=== PATIENT | female | born 1960 | race Caucasian/White ===

== ENCOUNTER 2017-09-20 04:40 | Inpatient (IN) | payer BC ==
[2017-09-20 05:32] LABS: Absolute Lymphocytes (CBC) 0.4 K/uL (0.7-4.9); Absolute Monocytes 0.2 K/uL (0.1-1.3); Absolute Neutrophil 12.2 K/uL (1.8-8.0); Basophils % 0.2 % (0-1.3); Eosinophils % 0.2 % (0-4.4); Hematocrit 38.9 % (36.0-45.0); MCH 30.4 pg (27.0-35.0); MCV 91.7 fL (80-100); MPV 9.2 fL (7.6-11.3); Monocytes % 1.7 % (3.3-12.3); RBC Red Blood Cell Count 4.24 M/uL (3.86-4.86)
[2017-09-20] MEDS ORDERED: NA CHLORIDE 0.9% 1,000 ML ONE (05:43)
[2017-09-20 06:27] LABS: Blood Morphology Comment NOTED (NOT SEEN); Platelet Estimate ADEQ; Teardrop Cell FEW
[2017-09-20 06:32] LABS: Thyroid Stimulating Hormone 1.42 uIU/mL (0.34-5.60)
--- NOTE | 2017-09-20 06:34 | EKG ---
Test Date: 2017-09-20 Test Time: 05:21:31 Chucking Machine Set Up Operator: KIT MEASUREMENT RESULTS: Intervals: Rate: 111 MI: 130 QRSD: 86 QT: 336 QTc: 456 Champion: P: 50 MI: 130 QRS: 31 T: 40 INTERPRETIVE STATEMENTS: Sinus tachycardia Possible Left atrial enlargement Borderline ECG No previous ECG available for comparison Electronically Signed On 09-20-17 06:33:44 CDT by Misha Peralta
--- NOTE | 2017-09-20 06:41 | ER ---
Nurse's Notes [facility] Name: Charleen Bourne Age: 57 yrs Sex: Female : 1960 Arrival Date: 09/20/2017 Time: 04:43 Bed 4 Private MD: Diagnosis: Lobar pneumonia, unspecified organism Presentation: 09/20 04:51 Presenting complaint: Patient states: seen and treated by PCP Dr. Aguirre for sinus ak1 infection. pt c/o increased cough, congestion and back pain with cough. Transition of care: patient was not received from another setting of care. Onset of symptoms is unknown. Care prior to arrival: None. 04:51 Method Of Arrival: Ambulatory ak1 04:51 Acuity: HARSH 4 ak1 Triage Assessment: 04:53 General: Appears in no apparent distress. Behavior is calm, cooperative. 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 - Social history:: Smoking status: Patient/guardian denies using tobacco. Screenin:18 Abuse screen: Denies threats or abuse. Denies injuries from another. Nutritional bp screening: No deficits noted. Tuberculosis screening: No symptoms or risk factors identified. Fall Risk None identified. Assessment: 05:00 General: Appears in no apparent distress. comfortable, obese, Behavior is calm, bp cooperative, appropriate for age. Pain: Complains of pain in back. Neuro: Level of Consciousness is awake, alert, obeys commands, Oriented to person, place, time, situation, Appropriate for age. Cardiovascular: Capillary refill < 3 seconds in bilateral fingers Rhythm is sinus tachycardia. Respiratory: Airway is patent Respiratory effort is even, unlabored, Respiratory pattern is regular, symmetrical, Breath sounds are clear. GI: No signs and/or symptoms were reported involving the gastrointestinal system. : No signs and/or symptoms were reported regarding the genitourinary system. EENT: Reports nasal congestion. Derm: No deficits noted. Musculoskeletal: Circulation, motion, and sensation intact. Range of motion: intact in all extremities. 06:02 Reassessment: PT TO CT WITH PRIVATE HOUSEHOLD WORKER. bp 06:53 Reassessment: PT SEEN BY HOSPITALIST, PT DISPO PENDING DECISION OF PNEUMONIA VS bp MALIGNANCY. 07:17 General: Appears in no apparent distress. comfortable, Behavior is calm, cooperative, sv appropriate for age. Pain: Denies pain. Neuro: Level of Consciousness is awake, alert, obeys commands, Oriented to person, place, time, situation. Respiratory: Respiratory effort is even, unlabored, Respiratory pattern is regular, symmetrical. Derm: Skin is pink, warm \T\ dry. 07:42 Reassessment: Pt given lemon glycerine swabs. sv 08:30 Reassessment: Patient appears in no apparent distress at this time. Patient and/or sv family updated on plan of care and expected duration. Pain level reassessed. Patient is alert, oriented x 3, equal unlabored respirations, skin warm/dry/pink. Pt ambulatory to the bathroom. 08:53 Reassessment: Nurse to call back for report. sv Vital Signs: 04:50 BP 124 / 90; Pulse 115; Resp 18; Temp 98.2(O); Pulse Ox 96% on R/A; Weight 73.94 kg ak1 (R); Height 5 ft. 0 in. (152.40 cm) (R); Pain 6/10; 05:58 BP 115 / 62; Pulse 102; Resp 18; Pulse Ox 100% ; bp 07:17 BP 123 / 69; Pulse 110; Resp 18; Temp 98.5(O); Pulse Ox 97% on R/A; sv 08:23 BP 137 / 61; Pulse 114; Resp 18; Pulse Ox 96% ; sv 09:25 BP 154 / 72; Pulse 115; Resp 18; Pulse Ox 97% ; sv 04:50 Body Mass Index 31.83 (73.94 kg, 152.40 cm) ak1 ED Course: 04:43 Patient arrived in ED. al2 04:50 Homer Jessica MD is Attending Physician. gs 04:51 Sean Hooks, WILLIAM is Primary Nurse. bp 04:52 Triage completed. ak1 04:53 Arm band placed on Patient placed in an exam room, on a stretcher, on pulse oximetry, ak1 Patient notified of wait time. 04:54 Patient has correct armband on for positive identification. Bed in low position. Call ak1 light in reach. Side rails up X 1. Adult w/ patient. Pulse ox on. NIBP on. 05:02 Radiology exam delayed due to lab results not completed at this time. (BUN/Creatinine). nb1 05:10 Inserted saline lock: 20 gauge in left antecubital area, using aseptic technique. Blood bp collected. 05:27 Basic Metabolic Panel Sent. bp 05:27 CBC with Diff Sent. bp 05:27 Troponin (emerg Dept Use Only) Sent. bp 06:40 Alessandro Jackson DO is Hospitalizing Provider. gs 07:07 TSH Sent. sv 07:08 Blood Culture* Sent. sv 07:08 Urine Dipstick--Ancillary (enter results) Sent. sv 07:09 Primary Nurse role handed off by Sean Hooks, WILLIAM sv 07:09 Trista Diaz, WILLIAM is Primary Nurse. sv 07:43 Awaiting bed assignment. sv 08:24 Awaiting bed assignment. sv 08:54 No provider procedures requiring assistance completed. Patient admitted, IV remains in sv place. intact. Administered Medications: 05:27 Drug: NS 0.9% 1000 ml Route: IV; Rate: 1 bolus; Site: left antecubital; bp 07:17 Drug: LevaQUIN 750 mg Volume: 150 ml; Route: IVPB; Infused Over: 90 mins; Site: left sv antecubital; 08:55 Follow up: Response: No adverse reaction; IV Status: Completed infusion; IV Intake: sv 150ml 07:42 Drug: Zofran 4 mg {Note: Levaquin paused and flushed before and after the Zofran sv given..} Route: IVP; Site: left antecubital; 08:00 Follow up: Response: No adverse reaction sv Intake: 08:55 IV: 150ml; Total: 150ml. sv Outcome: 06:40 Decision to Hospitalize by Provider. gs 09:22 Admitted to Med/surg accompanied by tech, via wheelchair, room 411, with chart, Report sv called to Kristi THOMAS 09:22 Condition: stable 09:22 Instructed on the need for admit. 09:43 Patient left the ED. sv Signatures: Trista Diaz, RN RN sv Aretha Perez, RN RN ak1 Homer Jessica MD MD gs Boothe, Nicole nb1 Sean Hooks RN RN bp Juarez, Devika low2
--- NOTE | 2017-09-20 06:41 | EDPHYS ---
Physician Documentation [facility] Name: Charleen Bourne Age: 57 yrs Sex: Female : 1960 Arrival Date: 09/20/2017 Time: 04:43 Bed 4 Private MD: ED Physician Homer Jessica HPI: 09/20 06:16 This 57 yrs old Female presents to ER via Ambulatory with complaints of gs Cough, Fever, Congestion, Back Pain. 06:16 The patient or guardian reports chest pain that is located primarily in the anterior gs chest wall. Onset: 1 week(s) ago. Associated signs and symptoms: Pertinent positives: cough, shortness of breath. The chest pain is described as sharp. 06:16 Duration: The patient or guardian reports multiple episodes, that are intermittent. gs Modifying factors: The symptoms are alleviated by nothing. the symptoms are aggravated by deep breath. Severity of pain: At its worst the pain was moderate in the emergency department the pain is unchanged. 06:16 The patient has been recently seen by a physician: with similar presenting complaints. 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 - Social history:: Smoking status: Patient/guardian denies using tobacco. ROS: 06:16 All other systems are negative. gs Exam: 06:16 Head/Face: Normocephalic, atraumatic. Eyes: Pupils equal round and reactive to light, gs extra-ocular motions intact. Lids and lashes normal. Conjunctiva and sclera are non-icteric and not injected. Cornea within normal limits. Periorbital areas with no swelling, redness, or edema. ENT: Nares patent. No nasal discharge, no septal abnormalities noted. Tympanic membranes are normal and external auditory canals are clear. Oropharynx with no redness, swelling, or masses, exudates, or evidence of obstruction, uvula midline. Mucous membranes moist. Neck: Trachea midline, no thyromegaly or masses palpated, and no cervical lymphadenopathy. Supple, full range of motion without nuchal rigidity, or vertebral point tenderness. No Meningismus. Chest/axilla: Normal chest wall appearance and motion. Nontender with no deformity. No lesions are appreciated. Abdomen/GI: Soft, non-tender, with normal bowel sounds. No distension or tympany. No guarding or rebound. No evidence of tenderness throughout. Back: No spinal tenderness. No costovertebral tenderness. Full range of motion. Skin: Warm, dry with normal turgor. Normal color with no rashes, no lesions, and no evidence of cellulitis. MS/ Extremity: Pulses equal, no cyanosis. Neurovascular intact. Full, normal range of motion. Neuro: Awake and alert, GCS 15, oriented to person, place, time, and situation. Cranial nerves II-XII grossly intact. Motor strength 5/5 in all extremities. Sensory grossly intact. Cerebellar exam normal. Normal gait. 06:16 Constitutional: The patient appears alert, awake. 06:16 Cardiovascular: Rate: tachycardic, Rhythm: regular, Pulses: no pulse deficits are appreciated, Heart sounds: normal. 06:16 ECG was reviewed by the Attending Physician. 06:16 Respiratory: the patient does not display signs of respiratory distress, Respirations: intercostal retractions, are absent, tachypnea, that is mild, Breath sounds: are clear throughout. Vital Signs: 04:50 BP 124 / 90; Pulse 115; Resp 18; Temp 98.2(O); Pulse Ox 96% on R/A; Weight 73.94 kg ak1 (R); Height 5 ft. 0 in. (152.40 cm) (R); Pain 6/10; 05:58 BP 115 / 62; Pulse 102; Resp 18; Pulse Ox 100% ; bp 07:17 BP 123 / 69; Pulse 110; Resp 18; Temp 98.5(O); Pulse Ox 97% on R/A; sv 08:23 BP 137 / 61; Pulse 114; Resp 18; Pulse Ox 96% ; sv 09:25 BP 154 / 72; Pulse 115; Resp 18; Pulse Ox 97% ; sv 04:50 Body Mass Index 31.83 (73.94 kg, 152.40 cm) [facility] MDM: 04:57 Patient medically screened. 06:16 Differential diagnosis: abnormal EKG, acute myocardial infarction, chest wall pain, gs pleurisy, pulmonary embolus. Data reviewed: vital signs, nurses notes. 09/20 04:59 Order name: Basic Metabolic Panel 09/20 04:59 Order name: CBC with Diff 09/20 04:59 Order name: Troponin (emerg Dept Use Only) 09/20 05:24 Order name: TSH 09/20 05:34 Order name: CBC with Automated Diff; Complete Time: 06:28 EDMS 09/20 05:53 Order name: Basic Metabolic Panel; Complete Time: 06:33 EDMS 09/20 04:59 Order name: CT Chest For PE Angio 09/20 05:54 Order name: Troponin (Emerg Dept Use Only); Complete Time: 06:28 EDMS 09/20 06:27 Order name: Manual Differential; Complete Time: 06:28 EDNE 09/20 06:32 Order name: Thyroid Stimulating Hormone; Complete Time: 06:33 EDNE 09/20 06:39 Order name: Blood Culture* 09/20 06:42 Order name: Urine Dipstick--Ancillary (enter results) [facility] 09/20 06:59 Order name: Urine Dipstick-Ancillary [facility] 09/20 04:59 Order name: EKG; Complete Time: 05:00 09/20 04:59 Order name: Cardiac monitoring; Complete Time: 05:16 09/20 04:59 Order name: EKG - Nurse/Tech; Complete Time: 05:27 09/20 04:59 Order name: IV Saline Lock; Complete Time: 05:16 09/20 04:59 Order name: Labs collected and sent; Complete Time: 05:16 09/20 04:59 Order name: O2 Per Protocol; Complete Time: 05:16 09/20 04:59 Order name: O2 Sat Monitoring; Complete Time: 05:16 09/20 04:59 Order name: Urine Dipstick-Ancillary (obtain specimen); Complete Time: 06:44 gs EC:16 Rate is 111 beats/min. Rhythm is regular. NM interval is normal. QRS interval is gs normal. QT interval is normal. T waves are Normal. No ST changes noted. Clinical impression: Sinus tachycardia. Interpreted by me. Administered Medications: 05:27 Drug: NS 0.9% 1000 ml Route: IV; Rate: 1 bolus; Site: left antecubital; bp 07:17 Drug: LevaQUIN 750 mg Volume: 150 ml; Route: IVPB; Infused Over: 90 mins; Site: left sv antecubital; 08:55 Follow up: Response: No adverse reaction; IV Status: Completed infusion; IV Intake: sv 150ml 07:42 Drug: Zofran 4 mg {Note: Levaquin paused and flushed before and after the Zofran sv given..} Route: IVP; Site: left antecubital; 08:00 Follow up: Response: No adverse reaction sv Disposition: 09/20/17 06:40 Hospitalization ordered by Alessandro Jackson for Inpatient Admission. Preliminary diagnosis is Lobar pneumonia, unspecified organism. - Bed requested for Telemetry/MedSurg (Inpatient). - Status is Inpatient Admission. sv - Condition is Stable. - Problem is new. - Symptoms have improved. UTI on Admission? No Signatures: Dispatcher [employer] Trista Cage, RN RN Jazzmine Sutherland RN RN Aretha Read RN RN ak1 Homer Jessica MD MD gs Peltier, Brian, RN RN bp
[2017-09-20 06:59] LABS: Urine Blood TRACE (NEG); Urine Glucose NEGATIVE (NEG); Urine Protein NEGATIVE (NEG); Urine Specific Gravity <1.005 (1.005-1.030)
[2017-09-20] MEDS ORDERED: ACETAMINOPHEN 500 MG TAB PO PRN (07:22)
[2017-09-20] MEDS ORDERED: ONDANSETRON 4 MG/2 ML VIAL IV PRN (07:22)
[2017-09-20] MEDS ORDERED: Levofloxacin 750mg IV 750 MG/150 ML BAG IV ONE (07:30)
[2017-09-20] MEDS ORDERED: ONDANSETRON 4 MG/2 ML VIAL ONE (07:56)
[2017-09-20] MEDS: IPRATROPIUM BROM 0.5MG/2.5ML NEB SCH ×3 (08:00→19:39)
[2017-09-20] MEDS: ALBUTEROL 2.5 MG/3 ML NEB SOL NEB SCH ×3 (08:00→19:39)
[2017-09-20] MEDS ORDERED: NA CHLORIDE 0.9% 1,000 ML IV SCH (08:00)
[2017-09-20] MEDS ORDERED: CEFEPIME 2 GM VIAL IV SCH (09:00)
[2017-09-20] MEDS ORDERED: VANCOMYCIN 1.5 GM in NA CHLORIDE 0.9% 500 ML IV SCH ×2 (09:00→12:00)
--- NOTE | 2017-09-20 09:16 | P.HP ---
Certification for Inpatient Patient admitted to: Inpatient With expected LOS: >2 Midnights Patient will require the following post-hospital care: None Practitioner: I am a practitioner with admitting privileges, knowledge of patient current condition, hospital course, and medical plan of care. Services: Services provided to patient in accordance with Admission requirements found in Title 42 Section 412.3 of the Code of Federal Regulations Patient History Date of Service: 09/20/17 Reason for admission: Multifocal pneumonia History of Present Illness: Patient is a 57-year-old female who was admitted to the hospital with a pneumonia. She has been treated as an outpatient for the last week and a half. She saw her primary care provider who started her on Augmentin. She did feel better for a few days but over the last 4-5 days she has started becoming worse. She went back in to see her primary care provider who started her on Zithromax. However, this did not work either. She continued to get worse having fevers, shakes, and chills along with a persistent cough. This was a dry cough that she was not able to get any mucus up. She was feeling worse over had her come to the hospital. In the emergency room a CT scan of the chest revealed a large left-sided consolidated pneumonia as well as a right lower lobe pneumonia. She will be admitted to the hospital for IV antibiotic therapy as well. Patient did smoke for about 9 months in her 40s. Other than that she has no exposure to smoking. She denies any significant weight loss. She denies hemoptysis. She denies night sweats. She will be admitted to the hospital for further evaluation. Allergies cephalexin [From Keflex] Allergy (Verified 09/20/17 07:10) Itching/Hives/Rash - Past Medical/Surgical History -: Hypertension Past Surgical History: Patient denies surgical history - Family History Father Family History: Reviewed- Non-Contributory - Social History Smoking Status: Former smoker Alcohol use: No CD- Drugs: No Review of Systems 10-point ROS is otherwise unremarkable Physical Examination - Vital Signs Temperature: 99 F Blood Pressure: 120/70 Pulse: 89 Respirations: 18 Pulse Ox (%): 96 - Physical Exam General: Alert, In no apparent distress, Oriented x3 HEENT: Atraumatic, PERRLA, Mucous membr. moist/pink, EOMI, Sclerae nonicteric Neck: Supple, 2+ carotid pulse no bruit, No LAD, Without JVD or thyroid abnormality Respiratory: Diminished, Rhonchi/gurgles Cardiovascular: Regular rate/rhythm, Normal S1 S2, No murmurs Gastrointestinal: Normal bowel sounds, Soft and benign, Non-distended, No tenderness Musculoskeletal: No clubbing, No swelling, No tenderness Integumentary: No rashes Neurological: Normal gait, Normal speech, Normal strength at 5/5 x4 extr, Normal tone, Sensation intact, Cranial nerves 3-12 intact, Normal affect Lymphatics: No axilla or inguinal lymphadenopathy - Studies Laboratory Data (last 24 hrs) 09/20/17 05:10: WBC 12.8 H, Hgb 12.9, Hct 38.9, Plt Count 192 09/20/17 05:10: Sodium 137, Potassium 4.0, BUN 13, Creatinine 0.94, Glucose 138 H Assessment & Plan - Problems (Diagnosis) (1) Multifocal pneumonia Current Visit: Yes Status: Acute (2) Therapy failure due to antibiotic resistance Current Visit: Yes Status: Acute - Plan Plan: 1. Continue with IV antibiotics 2. Awaiting sputum and blood culture; procalcitonin level 3. Repeat chest x-ray in AM 4. CT scan revealed a persistent multifocal pneumonia with a consolidated left lower lobe pneumonia 5. Monitor hemodynamics closely 6. Continue with nebs as needed 7. O2 per protocol 8. Continue with gentle hydration 9. Repeat labs including CBC and renal function in a.m. 10. Outpt follow-up with Pulmonary 11. GI and DVT prophylaxis Discharge Plan: Home Plan to discharge in: Greater than 2 days - Advance Directives Does patient have a Living Will: No Does patient have a Durable POA for Healthcare: No - Code Status/Comfort Care Code Status Assessed: Yes Code Status: Full Code Critical Care: No Time Spent Managing PTS Care (In Minutes): 50
[2017-09-20 09:47] VITALS: BMI 31.8
[2017-09-20] MEDS ORDERED: NAPROXEN 250 MG TAB PO PRN (10:48)
--- NOTE | 2017-09-20 10:53 | P.CNS ---
Date of Consult: 09/20/17 Reason for Consult: Pneumonia Chief Complaint: Multifocal pneumonia History of Present Illness: Patient is 57 years of age she became sick about 2 weeks ago was treated with a sinus infection with amoxicillin by a primary care doctor patient did recover and then started having problems the gain for the past 4-5 days started complaining of shortness of breath productive cough chest pain worse on the left side and was admitted with from the emergency room with a diagnosis of left lower lobe pneumonia she currently complains of discomfort on the left side and was unable to sleep apart from history of asthma no other significant medical problems Allergies cephalexin [From Keflex] Allergy (Verified 09/20/17 07:10) Itching/Hives/Rash - Past Medical/Surgical History -: Hypertension -: Asthma - Family History Father Family History: Reviewed- Non-Contributory - Social History Alcohol use: No CD- Drugs: No Review of Systems 10-point ROS is otherwise unremarkable Physical Examination Temp Pulse Resp BP Pulse Ox 100.1 F 126 H 24 H 138/63 94 09/20/17 09:47 09/20/17 09:47 09/20/17 09:47 09/20/17 09:47 09/20/17 09:47 General: Alert, Oriented x3 HEENT: Atraumatic Neck: Supple Respiratory: Crackles/rales (Crackles on the left side) Cardiovascular: No edema, Regular rate/rhythm, Normal S1 S2 Gastrointestinal: Normal bowel sounds, Soft and benign Laboratory Data (last 24 hrs) 09/20/17 05:10: WBC 12.8 H, Hgb 12.9, Hct 38.9, Plt Count 192 09/20/17 05:10: Sodium 137, Potassium 4.0, BUN 13, Creatinine 0.94, Glucose 138 H - Problems (1) Left lower lobe pneumonia Current Visit: Yes Status: Acute Plan: Patient is 57 years of age admitted with a left lower lobe pneumonia change to p.o. levofloxacin patient is hemodynamically stable complaining of chest pain I have added some Vicodin and Naprosyn labs reviews chemistry unremarkable patient. Will be discharged home tomorrow on levofloxacin for 7 days blood cultures pending
--- NOTE | 2017-09-20 11:56 | RAD REPORT ---
EXAM DESCRIPTION: CT - Chest For Pe Angio - 09/20/2017 6:23 am CLINICAL HISTORY: Chest pain. COMPARISON: None. TECHNIQUE: CT angiogram of the pulmonary arteries was performed with MIP. All CT scans are performed using dose optimization technique as appropriate and may include automated exposure control or mA/KV adjustment according to patient size. FINDINGS: No evidence of pulmonary thromboembolism. No acute aortic finding demonstrated. A large area of airspace consolidation is seen in the left lower lobe, most likely representing bronc hopneumonia. Mild linear and nodular opacities as present right lower lobe posteriorly. A small left pleural effusion is seen. Mildly prominent mediastinal and left hilar lymph nodes are pr esent, likely reactive. Fatty liver is seen. IMPRESSION: No evidence of pulmonary thromboembolism. Large area of consolidation in the left lower lobe likely represents bronchopneumonia.
[2017-09-20] MEDS ORDERED: NA CHLORIDE 0.9% 1,000 ML IV ONE (12:10)
[2017-09-20] MEDS: ENOXAPARIN 40 MG/0.4 ML SQ SCH (12:30)
[2017-09-20] MEDS: HYDROCODONE/APAP 5/325 MG TAB PO PRN ×2 (12:33→20:28)
[2017-09-20 12:47] LABS: Absolute Lymphocytes (CBC) 0.4 K/uL (0.7-4.9); Absolute Monocytes 0.4 K/uL (0.1-1.3); Absolute Neutrophil 11.7 K/uL (1.8-8.0); Basophils % 0.1 % (0-1.3); Hematocrit 40.7 % (36.0-45.0); Lymphocytes % 3.1 % (15.3-44.8); MCH 30.2 pg (27.0-35.0); MCV 91.7 fL (80-100); MPV 9.2 fL (7.6-11.3); RBC Red Blood Cell Count 4.44 M/uL (3.86-4.86)
[2017-09-20 13:01] LABS: Potassium 3.8 mEq/L (3.6-5.0)
[2017-09-20 13:05] LABS: Albumin 3.4 g/dL (3.2-5.5); Protein, Total 7.3 g/dL (6.0-8.3)
[2017-09-20 13:07] LABS: Bilirubin Total 1.1 mg/dL (0.3-1.2)
[2017-09-20] MEDS: chlordiazePOXIDE HCl 25 MG CAP PO PRN (14:13)
[2017-09-21] MEDS: chlordiazePOXIDE HCl 25 MG CAP PO PRN (00:03)
[2017-09-21] MEDS: HYDROCODONE/APAP 5/325 MG TAB PO PRN (00:03)
[2017-09-21] MEDS: ALBUTEROL 2.5 MG/3 ML NEB SOL NEB SCH ×2 (01:16→07:44)
[2017-09-21] MEDS: IPRATROPIUM BROM 0.5MG/2.5ML NEB SCH ×2 (01:16→07:44)
[2017-09-21 04:20] LABS: Absolute Lymphocytes (CBC) 0.5 K/uL (0.7-4.9); Absolute Monocytes 0.5 K/uL (0.1-1.3); Absolute Neutrophil 7.3 K/uL (1.8-8.0); Basophils % 0.2 % (0-1.3); Eosinophils % 1.6 % (0-4.4); Hematocrit 31.7 % (36.0-45.0); Lymphocytes % 5.4 % (15.3-44.8); MCH 30.7 pg (27.0-35.0); MPV 9.1 fL (7.6-11.3); Monocytes % 5.4 % (3.3-12.3); RBC Red Blood Cell Count 3.45 M/uL (3.86-4.86)
[2017-09-21 04:40] LABS: Albumin 2.5 g/dL (3.2-5.5); Bilirubin Total 0.7 mg/dL (0.3-1.2); Magnesium 1.5 mg/dL (1.8-2.5); Phosphorus 2.3 mg/dL (2.5-4.3); Potassium 3.3 mEq/L (3.6-5.0); Protein, Total 5.5 g/dL (6.0-8.3)
[2017-09-21] MEDS ORDERED: Magnesium Sulfate 2gm IVPB 2 G/50 ML BAG IV ONE (07:17)
[2017-09-21] MEDS ORDERED: POTASSIUM CL SA 10 MEQ TAB PO ONE (07:18)
--- NOTE | 2017-09-21 08:23 | P.PN ---
Subjective Date of Service: 09/21/17 Chief Complaint: Multifocal pneumonia Subjective: Improving (Patient is doing better pain has improved normal fever complaining of chest congestion) Review of Systems Respiratory: Cough, Shortness of Breath Physical Examination - Vital Signs Temperature: 98.0 F Blood Pressure: 97/57 Pulse: 92 Respirations: 15 Pulse Ox (%): 97 - Physical Exam General: Alert, Oriented x3 Respiratory: Crackles/rales (Crackles on the left side) Cardiovascular: No edema Gastrointestinal: Normal bowel sounds, Soft and benign Assessment & Plan - Problems (Diagnosis) (1) Left lower lobe pneumonia Current Visit: Yes Status: Acute Plan: Patient is 57 years of age admitted with left lower lobe pneumonia cultures are so far negative clinically improving patient can be discharged home on levofloxacin for another 7 days Qualifiers: Aspiration pneumonia type: unspecified
[2017-09-21] MEDS: ENOXAPARIN 40 MG/0.4 ML SQ SCH (08:39)
[2017-09-21] MEDS ORDERED: Levofloxacin 750mg IV 750 MG/150 ML BAG IV SCH ×2 (09:00)
[2017-09-21] MEDS ORDERED: levoFLOXacin 500 MG TAB PO SCH ×2 (09:00)
[2017-09-21] MEDS ORDERED: NA CHLORIDE 0.9% 500 ML IV ONE (09:52)
[2017-09-21 12:10] VITALS: O2SAT 100
[2017-09-21 15:28] VITALS: BP 114/60; TEMP 98.4
--- NOTE | 2017-09-21 17:26 | P.SSS ---
Patient History Date of Service: 09/21/17 Reason for admission: Multifocal pneumonia History of Present Illness: Patient is a 57-year-old female who was admitted to the hospital with a pneumonia. She has been treated as an outpatient for the last week and a half. She saw her primary care provider who started her on Augmentin. She did feel better for a few days but over the last 4-5 days she has started becoming worse. She went back in to see her primary care provider who started her on Zithromax. However, this did not work either. She continued to get worse having fevers, shakes, and chills along with a persistent cough. This was a dry cough that she was not able to get any mucus up. She was feeling worse over had her come to the hospital. In the emergency room a CT scan of the chest revealed a large left-sided consolidated pneumonia as well as a right lower lobe pneumonia. She will be admitted to the hospital for IV antibiotic therapy as well. Patient did smoke for about 9 months in her 40s. Other than that she has no exposure to smoking. She denies any significant weight loss. She denies hemoptysis. She denies night sweats. She will be admitted to the hospital for further evaluation. Allergies cephalexin [From Keflex] Allergy (Verified 09/20/17 07:10) Itching/Hives/Rash Home Medications: Budesonide/Formoterol Fumarate [Symbicort 160-4.5 Mcg Inhaler] 2 puff IH BID Ipratropium/Albuterol Sulfate [Combivent Respimat Inhal [place]] 2 puff IH Q4H PRN 09/20/17 Levothyroxine [Synthroid*] 50 mcg PO [id number] 09/20/17 Lisinopril 10 mg PO DAILY 09/20/17 Nebivolol HCl [Bystolic*] 2.5 mg PO DAILY 09/20/17 Simvastatin 1 tab PO DAILY 09/20/17 Benzonatate [Tessalon Perle] 200 mg PO TID PRN #30 cap 09/21/17 Guaifenesin [Mucinex] 600 mg PO BID PRN #30 tab.er.12h 09/21/17 Levofloxacin [Levaquin] 500 mg PO DAILY 7 Days #7 tablet 09/21/17 - Past Medical/Surgical History Has patient received pneumonia vaccine in the past: Yes -: Hypertension -: Asthma -: MRSA in abd wound -: hypo thyroid -: hyperchol - Family History Father -: Cancer Mother History Unknown: Yes -: Heart disease - Social History Smoking Status: Former smoker Alcohol use: Yes CD- Drugs: No Caffeine use: Yes Place of Residence: Home Review of Systems General: As per HPI Physical Examination - Vital Signs Temperature: 98.4 F Blood Pressure: 114/60 Pulse: 98 Respirations: 18 Pulse Ox (%): 95 - Physical Exam General: Alert, In no apparent distress, Oriented x3 HEENT: Atraumatic, PERRLA, Mucous membr. moist/pink, EOMI, Sclerae nonicteric Neck: Supple, 2+ carotid pulse no bruit, No LAD, Without JVD or thyroid abnormality Respiratory: Clear to auscultation bilaterally, Normal air movement Cardiovascular: Regular rate/rhythm, Normal S1 S2 Gastrointestinal: Normal bowel sounds, No tenderness Musculoskeletal: No tenderness Integumentary: No rashes Neurological: Normal gait, Normal speech, Normal strength at 5/5 x4 extr, Normal tone, Normal affect Lymphatics: No axilla or inguinal lymphadenopathy - Diagnosis (Problem(s)) (1) Left lower lobe pneumonia Onset Date: 09/21/17 Status: Acute Plan: Responded well on Empiric Therapy. Discharge on PO therapy. Qualifiers: Aspiration pneumonia type: unspecified (2) Alcohol abuse Status: Acute Plan: Remained stable here in the hospital Treatment Summary: 1. Patient will need a follow up with a PCP in 1 week to follow up this hospitalization. 2. Patient presented with shortness of breath. Patient found to have left lower lobe pneumonia. Patient evaluated by pulmonology. At discharge patient will continue with Levaquin 500 mg 1 pill daily for 7 days. Tessalon Perles 200 mg 1 pill 3 times a day as needed for cough and Mucinex 600 mg 1 pill twice daily as needed for congestion will be provided. Recommendation is for the patient to have a chest x-ray repeated in 2-4 weeks to monitor resolution. Recommendation is for the patient to follow up with pulmonology in 2-4 weeks to monitor progress. 3. Patient with history of COPD. Patient will continue with Symbicort 160 presently and albuterol/Atrovent to be use as needed for shortness 4. Patient has hypertension. She will continue with lisinopril 10 mg 1 pill daily and Bystolic 2.5 mg 1 pill daily. Recommendation is to maintain blood pressures less 150/80. Further adjustment can be done by her PCP. She may need to hold her medication if blood pressures remain below 120 systolic. 5. Patient has hyperlipidemia. She will continue with Zocor 80 mg 1 pill once daily. 6. Patient has hypothyroidism. Patient will continue with Levoxyl 50 mcg 1 pill daily. 7. Patient may return to work next Thursday. - Disposition Disposition: ROUTINE DISCHARGE Patient Discharge Instructions: 1. Patient will need a follow up with a PCP in 1 week to follow up this hospitalization. 2. Patient presented with shortness of breath. Patient found to have left lower lobe pneumonia. Patient evaluated by pulmonology. At discharge patient will continue with Levaquin 500 mg 1 pill daily for 7 days. Tessalon Perles 200 mg 1 pill 3 times a day as needed for cough and Mucinex 600 mg 1 pill twice daily as needed for congestion will be provided. Recommendation is for the patient to have a chest x-ray repeated in 2 -4 weeks to monitor resolution. Recommendation is for the patient to follow up with pulmonology in 2-4 weeks to monitor progress. 3. Patient with history of COPD. Patient will continue with Symbicort 160 presently and albuterol/ Atrovent to be use as needed for shortness. 4. Patient has hypertension. She will continue with lisinopril 10 mg 1 pill daily and Bystolic 2.5 mg 1 pill daily. Recommendation is to maintain blood pressures less 150/80. Further adjustment can be done by her PCP. She may need to hold her medication if blood pressures remain below 120 systolic. 5. Patient has hyperlipidemia. She will continue with Zocor 80 mg 1 pill once daily. 6. Patient has hypothyroidism. Patient will continue with Levoxyl 50 mcg 1 pill daily. 7. Patient may return to work next Thursday. Diet: AHA Activity: Ad melanie
[2017-09-21] MEDS ORDERED: HOME MED 1 EA UNK (Budesonide/Formoterol Fumarate [Symbicort 160-4.5 Mcg Inhaler] 2 PUFF) IH SCH (21:00)
[2017-09-21] MEDS ORDERED: ATORVASTATIN 40 MG TAB PO SCH (21:00)
[2017-09-22] MEDS ORDERED: LEVOTHYROXINE SOD 0.05 MG TABLET PO SCH (06:00)
[2017-09-24 03:49] LABS: HBsAG Nonreactive (Nonreactive); Hepatitis A IgM Antibody Nonreactive
== END 2017-09-21 13:50 | disposition home or self-care (01) | DRG 871 ==
LOC: ER 04:40 → ERHOLD 06:43 → 4TH 09:22
PROVIDERS: ADMIT Family Medicine; ATTEND Hospitalist
DX: A41.9 Sepsis, unspecified organism (principal); J18.9 Pneumonia, unspecified organism; J44.0 Chronic obstructive pulmonary disease with (acute) lower respiratory infection; I10 Essential (primary) hypertension; E03.9 Hypothyroidism, unspecified; Z87.891 Personal history of nicotine dependence; E78.00 Pure hypercholesterolemia, unspecified; F10.10 Alcohol abuse, uncomplicated
CPT/HCPCS: 36415; 71275; 80048; 80053; 80061; 80074; 81003; 83605; 83735; 84100; 84443; 84484; 85025; 87040; 93005; 94640; 96365; 96366; 96375; 99285; J1650; J2405; J3475; J7030; Q9967

== ENCOUNTER 2017-11-03 10:08 | Inpatient (IN) | payer BC ==
[2017-11-03] MEDS ORDERED: IPRATROPIUM BROM 0.5MG/2.5ML ONE (10:27)
[2017-11-03] MEDS ORDERED: LEVALBUTEROL 1.25 MG/3 ML NEB ONE (10:27)
[2017-11-03] MEDS ORDERED: METHYLPREDNISOLONE 125 MG INJ ONE (11:03)
[2017-11-03] MEDS ORDERED: Levofloxacin 750mg IV 750 MG/150 ML BAG IV ONE (11:03)
--- NOTE | 2017-11-03 11:12 | EDPHYS ---
Physician Documentation [facility] Name: Charleen Bourne Age: 57 yrs Sex: Female : 1960 Arrival Date: 11/03/2017 Time: 10:09 Bed 26 Private MD: ED Physician Kalpesh Lane HPI: 11/03 10:42 This 57 yrs old Female presents to ER via Ambulatory with complaints of soledad Cough, Wheezing > 1 Year. 10:42 The patient or guardian reports airway noise, cough, difficulty breathing, flu soledad symptoms. Onset: The symptoms/episode began/occurred 3 day(s) ago. Severity of symptoms: At their worst the symptoms were moderate, in the emergency department the symptoms are unchanged. Modifying factors: The symptoms are alleviated by nothing, the symptoms are aggravated by nothing. The patient has not experienced similar symptoms in the past. 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 - Social history:: Smoking status: Patient/guardian denies using tobacco, Patient uses alcohol, occasionally. Patient/guardian denies using street drugs. - Family history:: not pertinent. ROS: 10:42 Constitutional: Negative for fever, chills, and weight loss, Eyes: Negative for injury, soledad pain, redness, and discharge, ENT: Negative for injury, pain, and discharge, Neck: Negative for injury, pain, and swelling, Cardiovascular: Negative for chest pain, palpitations, and edema, Abdomen/GI: Negative for abdominal pain, nausea, vomiting, diarrhea, and constipation, Back: Negative for injury and pain, : Negative for injury, bleeding, discharge, and swelling, MS/Extremity: Negative for injury and deformity, Skin: Negative for injury, rash, and discoloration, Neuro: Negative for headache, weakness, numbness, tingling, and seizure, Psych: Negative for depression, anxiety, suicide ideation, homicidal ideation, and hallucinations, Allergy/Immunology: Negative for hives, rash, and allergies, Endocrine: Negative for neck swelling, polydipsia, polyuria, polyphagia, and marked weight changes, Hematologic/Lymphatic: Negative for swollen nodes, abnormal bleeding, and unusual bruising. 10:42 Respiratory: Positive for cough, dyspnea on exertion, shortness of breath, wheezing, inspiratory, expiratory. Exam: 10:42 Constitutional: This is a well developed, well nourished patient who is awake, alert, soledad and in no acute distress. Head/Face: Normocephalic, atraumatic. Eyes: Pupils equal round and reactive to light, extra-ocular motions intact. Lids and lashes normal. Conjunctiva and sclera are non-icteric and not injected. Cornea within normal limits. Periorbital areas with no swelling, redness, or edema. ENT: Nares patent. No nasal discharge, no septal abnormalities noted. Tympanic membranes are normal and external auditory canals are clear. Oropharynx with no redness, swelling, or masses, exudates, or evidence of obstruction, uvula midline. Mucous membranes moist. Neck: Trachea midline, no thyromegaly or masses palpated, and no cervical lymphadenopathy. Supple, full range of motion without nuchal rigidity, or vertebral point tenderness. No Meningismus. Chest/axilla: Normal chest wall appearance and motion. Nontender with no deformity. No lesions are appreciated. Abdomen/GI: Soft, non-tender, with normal bowel sounds. No distension or tympany. No guarding or rebound. No evidence of tenderness throughout. Back: No spinal tenderness. No costovertebral tenderness. Full range of motion. Female : Normal external genitalia. Skin: Warm, dry with normal turgor. Normal color with no rashes, no lesions, and no evidence of cellulitis. MS/ Extremity: Pulses equal, no cyanosis. Neurovascular intact. Full, normal range of motion. Neuro: Awake and alert, GCS 15, oriented to person, place, time, and situation. Cranial nerves II-XII grossly intact. Motor strength 5/5 in all extremities. Sensory grossly intact. Cerebellar exam normal. Normal gait. 10:42 Cardiovascular: Rate: tachycardic, Rhythm: regular, Pulses: Pulses are 4+ in bilateral radial, brachial, femoral, popliteal, posterior tibial and and dorsalis pedis arteries.. Heart sounds: normal, Edema: is not appreciated, JVD: is not appreciated. 10:42 Musculoskeletal/extremity: DVT Exam: No signs of deep vein thrombosis. no pain, no swelling, no tenderness, negative Homans' sign noted on exam, no appreciated bluish discoloration, no erythema, no increased warmth. Vital Signs: 10:21 BP 126 / 84; Pulse 116; Resp 24; Temp 98.5; Pulse Ox 92% on R/A; Weight 73.48 kg; ch Height 5 ft. (152.40 cm); Pain 0/10; 11:09 BP 132 / 88; Pulse 122; Resp 19; Pulse Ox 100% on Nebulizer Mask; aj1 12:09 BP 125 / 72; Pulse 120; Resp 17; Pulse Ox 95% on 2 lpm NC; aj1 13:00 BP 149 / 67; Pulse 106; Resp 18; Pulse Ox 95% on 2 lpm NC; aj1 14:09 BP 131 / 73; Pulse 106; Resp 18; Pulse Ox 96% on 2 lpm NC; aj1 15:42 BP 139 / 86; Pulse 106; Resp 20; Pulse Ox 98% on 2 lpm NC; aj1 15:43 Temp 98.2(O); aj1 10:21 Body Mass Index 31.64 (73.48 kg, 152.40 cm) MDM: 10:27 Patient medically screened. [facility] 10:42 Data reviewed: vital signs, nurses notes, lab test result(s), EKG, radiologic studies, soledad plain films. 11/03 10:41 Order name: Basic Metabolic Panel; Complete Time: 12: [facility] 11/03 10:41 Order name: BNP; Complete Time: 12: [facility] 11/03 10:41 Order name: CBC with Diff [facility] 11/03 10:41 Order name: Ckmb; Complete Time: 12: [facility] 11/03 10:41 Order name: CPK; Complete Time: 12: [facility] 11/03 10:41 Order name: LFT's; Complete Time: 12: [facility] 11/03 10:41 Order name: Magnesium; Complete Time: 12: [facility] 11/03 10:41 Order name: PT-INR; Complete Time: 12: [facility] 11/03 10:41 Order name: Ptt, Activated; Complete Time: 12: [facility] 11/03 10:41 Order name: Troponin (emerg Dept Use Only); Complete Time: 12: [facility] 11/03 10:41 Order name: Blood Culture Adult (2) [facility] 11/03 10:41 Order name: Procalcitonin [facility] 11/03 10:44 Order name: Flu [facility] 11/03 12:52 Order name: CBC Smear Scan [facility] 11/03 10:41 Order name: XRAY Chest (1 view); Complete Time: 12: [facility] 11/03 10:41 Order name: EKG; Complete Time: 10:42 [facility] 11/03 10:41 Order name: Cardiac monitoring; Complete Time: 10:59 [facility] 11/03 10:41 Order name: EKG - Nurse/Tech; Complete Time: 11:09 [facility] 11/03 10:41 Order name: IV Saline Lock; Complete Time: 10:59 [facility] 11/03 10:41 Order name: Labs collected and sent; Complete Time: 10:59 [facility] 11/03 11:16 Order name: CONS Physician Consult [facility] 11/03 14:17 Order name: Urine Dipstick--Ancillary (enter results) 11/03 14:17 Order name: Urine --Ancillary (enter results) 11/03 16:08 Order name: Urine --Ancillary [facility] 11/03 16:08 Order name: Urine Dipstick-Ancillary [facility] 11/03 10:41 Order name: O2 Per Protocol; Complete Time: 10:59 [facility] 11/03 10:41 Order name: O2 Sat Monitoring; Complete Time: 10:59 [facility] Administered Medications: 11:09 Drug: SOLU-Medrol 125 mg Route: IVP; Site: left antecubital; [facility] 15:50 Follow up: Response: No adverse reaction [facility] 11:09 Drug: levofloxacin 750 mg Volume: 150 ml; Route: IVPB; Infused Over: 90 mins; Site: [facility] left antecubital; 15:50 Follow up: IV Status: Completed infusion; IV Intake: 150ml 11:09 Drug: Albuterol - atroVENT (3:1) (2.5 mg - 0.5 mg) 3 ml Route: Nebulizer; aj1 15:50 Follow up: Response: No adverse reaction [facility] 13:00 Drug: Magnesium Sulfate 1 grams Route: IVPB; Infused Over: 1 hrs; Site: left [facility] antecubital; 15:51 Follow up: IV Status: Completed infusion; IV Intake: 100ml [facility] 13:15 Drug: Magnesium Sulfate 1 grams Route: IVPB; Infused Over: 1 hrs; Site: left [facility] antecubital; 15:51 Follow up: IV Status: Completed infusion; IV Intake: 100ml [facility] Disposition: 11/03/17 11:11 Hospitalization ordered by Venkata Valentin for Inpatient Admission. Preliminary diagnosis are Pneumonia due to other specified bacteria, Hypoxemia, Asthma, Hypo-osmolality and hyponatremia, Hypomagnesemia. - Bed requested for Telemetry/MedSurg (Inpatient). - Status is Inpatient Admission. [facility] - Condition is Fair. - Problem is new. - Symptoms have improved. UTI on Admission? No Signatures: Dispatcher [employer] Gloria Mckee RN RN ch Johnson, Angela, RN RN [facility] Jazzmine Durán RN RN dw Anderson, Corey, MD MD cha
--- NOTE | 2017-11-03 11:12 | ER ---
Nurse's Notes [facility] Name: Charleen Bourne Age: 57 yrs Sex: Female : 1960 Arrival Date: 11/03/2017 Time: 10:09 Bed 26 Private MD: Diagnosis: Pneumonia due to other specified bacteria;Hypoxemia;Asthma;Hypo-osmolality and hyponatremia;Hypomagnesemia Presentation: 11/03 10:18 Presenting complaint: Patient states: cough sob started of last week. I saw dr hernandez fever, got prescrptions, and had a chest x ray done here yesterday. i am coughing a lot, I cant sleep and vomit the cough medication. Transition of care: patient was not received from another setting of care. Onset of symptoms was October 2017. Initial Sepsis Screen: Does the patient meet any 2 criteria? No. Patient's initial sepsis screen is negative. Does the patient have a suspected source of infection? No. Patient's initial sepsis screen is negative. Care prior to arrival: Medication(s) given: medrol dose pack, promethazine DM syrup, levofloxacin. 10:18 Method Of Arrival: Ambulatory 10:18 Acuity: HARSH 3 Triage Assessment: 10:21 General: Appears in no apparent distress. comfortable, Behavior is calm, cooperative. Pain: Complains of pain in chest Pain currently is 0 out of 10 on a pain scale. at worst was 6 out of 10 on a pain scale. Respiratory: Reports shortness of breath cough that is. 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 - Social history:: Smoking status: Patient/guardian denies using tobacco, Patient uses alcohol, occasionally. Patient/guardian denies using street drugs. - Family history:: not pertinent. Screenin:09 Abuse screen: Denies threats or abuse. Denies injuries from another. Nutritional aj1 screening: No deficits noted. Tuberculosis screening: No symptoms or risk factors identified. 15:53 Fall Risk No fall in past 12 months (0 pts). No secondary diagnosis (0 pts). IV access aj1 (20 points). Ambulatory Aid- None/Bed Rest/Nurse Assist (0 pts). Gait- Normal/Bed Rest/Wheelchair (0 pts) Mental Status- Oriented to own ability (0 pts). Total Kauffman Fall Scale indicates No Risk (0-24 pts). Assessment: 11:09 General: Appears in no apparent distress. uncomfortable, Behavior is calm, cooperative, aj1 appropriate for age. Pain: Denies pain. Neuro: Level of Consciousness is awake, alert, obeys commands, Oriented to person, place, time, situation, Speech is normal, Facial symmetry appears normal. Cardiovascular: Denies chest pain, palpitations, Heart tones S1 S2 present Patient's skin is warm and dry. Rhythm is sinus tachycardia. Respiratory: Reports shortness of breath cough that is productive, Airway is patent Respiratory effort is even, unlabored, Respiratory pattern is regular, symmetrical, Breath sounds with rhonchi bilaterally. Breath sounds with wheezes bilaterally. the patient has mild shortness of breath. GI: No signs and/or symptoms were reported involving the gastrointestinal system. : No signs and/or symptoms were reported regarding the genitourinary system. EENT: No signs and/or symptoms were reported regarding the EENT system. Derm: No signs and/or symptoms reported regarding the dermatologic system. Skin is pink, warm \T\ dry. normal. Musculoskeletal: No signs and/or symptoms reported regarding the musculoskeletal system. Circulation, motion, and sensation intact. 12:09 Reassessment: Patient appears in no apparent distress at this time. No changes from aj1 previously documented assessment. Patient and/or family updated on plan of care and expected duration. Pain level reassessed. Patient is alert, oriented x 3, equal unlabored respirations, skin warm/dry/pink. 13:00 Reassessment: Patient appears in no apparent distress at this time. No changes from aj1 previously documented assessment. Patient and/or family updated on plan of care and expected duration. Pain level reassessed. Patient is alert, oriented x 3, equal unlabored respirations, skin warm/dry/pink. 14:08 Reassessment: Patient appears in no apparent distress at this time. No changes from 1 previously documented assessment. Patient and/or family updated on plan of care and expected duration. Pain level reassessed. Patient is alert, oriented x 3, equal unlabored respirations, skin warm/dry/pink. 15:15 Reassessment: Patient appears in no apparent distress at this time. No changes from aj1 previously documented assessment. Patient and/or family updated on plan of care and expected duration. Pain level reassessed. Patient is alert, oriented x 3, equal unlabored respirations, skin warm/dry/pink. Patient states feeling better. 15:54 Reassessment: Patient appears in no apparent distress at this time. No changes from aj1 previously documented assessment. Patient and/or family updated on plan of care and expected duration. Pain level reassessed. Patient is alert, oriented x 3, equal unlabored respirations, skin warm/dry/pink. Vital Signs: 10:21 BP 126 / 84; Pulse 116; Resp 24; Temp 98.5; Pulse Ox 92% on R/A; Weight 73.48 kg; Height 5 ft. (152.40 cm); Pain 0/10; 11:09 BP 132 / 88; Pulse 122; Resp 19; Pulse Ox 100% on Nebulizer Mask; aj1 12:09 BP 125 / 72; Pulse 120; Resp 17; Pulse Ox 95% on 2 lpm NC; aj1 13:00 BP 149 / 67; Pulse 106; Resp 18; Pulse Ox 95% on 2 lpm NC; aj1 14:09 BP 131 / 73; Pulse 106; Resp 18; Pulse Ox 96% on 2 lpm NC; aj1 15:42 BP 139 / 86; Pulse 106; Resp 20; Pulse Ox 98% on 2 lpm NC; aj1 15:43 Temp 98.2(O); aj1 10:21 Body Mass Index 31.64 (73.48 kg, 152.40 cm) ED Course: 10:09 Patient arrived in ED. sb2 10:20 Triage completed. 10:21 Arm band placed on left wrist. Patient placed in an exam room, on a stretcher. 10:[address] MD is Attending Physician. soeldad 10:39 Inserted saline lock: 18 gauge in right antecubital area, using aseptic technique. ch Blood collected. 10:50 Angelique Severino, WILLIAM is Primary Nurse. aj1 11:09 Patient has correct armband on for positive identification. Bed in low position. Call aj1 light in reach. Side rails up X 1. group fitness instructor on. Pulse ox on. NIBP on. 11:09 No provider procedures requiring assistance completed. aj1 11:10 Venkata Valentin MD is Hospitalizing Provider. soledad 11:19 EKG done, by environmental field services technician. reviewed by Kalpesh Lane MD. vh 11:21 X-ray completed. Portable x-ray completed in exam room. Patient tolerated procedure jb2 well. 11:24 XRAY Chest (1 view) In Process Unspecified. EDMS 15:51 Report given to WILLIAM Monreal on 4th floor. aj1 15:53 Patient admitted, IV remains in place. aj1 Administered Medications: 11:09 Drug: SOLU-Medrol 125 mg Route: IVP; Site: left antecubital; aj1 15:50 Follow up: Response: No adverse reaction aj1 11:09 Drug: levofloxacin 750 mg Volume: 150 ml; Route: IVPB; Infused Over: 90 mins; Site: [facility] left antecubital; 15:50 Follow up: IV Status: Completed infusion; IV Intake: 150ml aj1 11:09 Drug: Albuterol - atroVENT (3:1) (2.5 mg - 0.5 mg) 3 ml Route: Nebulizer; aj1 15:50 Follow up: Response: No adverse reaction aj1 13:00 Drug: Magnesium Sulfate 1 grams Route: IVPB; Infused Over: 1 hrs; Site: left [facility] antecubital; 15:51 Follow up: IV Status: Completed infusion; IV Intake: 100ml aj1 13:15 Drug: Magnesium Sulfate 1 grams Route: IVPB; Infused Over: 1 hrs; Site: left [facility] antecubital; 15:51 Follow up: IV Status: Completed infusion; IV Intake: 100ml aj1 Intake: 15:50 IV: 150ml; Total: 150ml. aj1 15:51 IV: 100ml; Total: 250ml. aj1 15:51 IV: 100ml; Total: 350ml. aj1 Outcome: 11:11 Decision to Hospitalize by Provider. soledad 15:54 Admitted to Tele accompanied by tech, via wheelchair, with chart. aj1 15:54 Condition: stable 15:54 Discharge instructions given to patient, Instructed on the need for admit, Demonstrated understanding of instructions. 16:14 Patient left the ED. aj1 Signatures: Dispatcher [employer] EDMS Gloria Whitmore, WILLIAM RN Angelique Abbott RN RN aj1 Kalpesh Lane MD MD cha Buechter, Jesse jb2 Marycarmen Moore Sheri sb2 Corrections: (The following items were deleted from the chart) 11:13 11:09 BP 132 / 88; Pulse 212bpm; Resp 19bpm; Pulse Ox 100% Nebulizer Mask; aj1 aj1 15:41 14:09 BP 131 / 73; Pulse 126bpm; Resp 18bpm; Pulse Ox 96% 2 lpm Nasal Cannula; aj1 aj1 15:43 15:42 BP 139 / 86; Pulse 106bpm; Resp 20bpm; Pulse Ox 98.2% 2 lpm Nasal Cannula; aj1 aj1
[2017-11-03 11:17] LABS: Protime INR 1.08
[2017-11-03 11:24] LABS: Bicarbonate 21 mEq/L (21-31); Glucose Level 139 mg/dL (65-120); Potassium 4.8 mEq/L (3.6-5.0); Sodium Level 130 mEq/L (135-145)
[2017-11-03 11:25] LABS: Absolute Lymphocytes (CBC) 0.3 K/uL (0.7-4.9); Absolute Monocytes 0.1 K/uL (0.1-1.3); Absolute Neutrophil 3.7 K/uL (1.8-8.0); Basophils % 0.3 % (0-1.3); Eosinophils % 0.2 % (0-4.4); Hematocrit 39.6 % (36.0-45.0); Lymphocytes % 7.5 % (15.3-44.8); MCH 30.2 pg (27.0-35.0); MPV 8.8 fL (7.6-11.3); Monocytes % 2.9 % (3.3-12.3)
[2017-11-03 11:26] LABS: ALT/SGPT 59 IU/L (10-60); AST/SGOT 43 IU/L (10-42); BUN Blood Urea Nitrogen 14 mg/dL (6-20); Bilirubin Total 0.3 mg/dL (0.3-1.2); CKMB Creatine Kinase MB 3.7 ng/ml (0.3-4.0); Creatine Phosphokinase 172 IU/L (22-269); Magnesium 1.7 mg/dL (1.8-2.5); Protein, Total 8.2 g/dL (6.0-8.3)
[2017-11-03 11:30] LABS: Alkaline Phosphatase 71 IU/L (42-121); Bilirubin Direct < 0.1 mg/dL (0-0.2)
--- NOTE | 2017-11-03 11:34 | RAD REPORT ---
EXAM DESCRIPTION: RAD - Chest Single View - 11/03/2017 11:26 am CLINICAL HISTORY: Cough, shortness of breath. COMPARISON: 11/02/2017 FINDINGS: Portable technique limits examination quality. The lungs are grossly clear. The heart is normal in size. No displaced fractures. IMPRESSION: No acute intrathoracic process suspected.
[2017-11-03] MEDS ORDERED: ONDANSETRON 4 MG/2 ML VIAL IV PRN (11:51)
[2017-11-03] MEDS ORDERED: ACETAMINOPHEN 500 MG TAB PO PRN (11:51)
[2017-11-03] MEDS ORDERED: IPRATROPIUM BROM 0.5MG/2.5ML NEB PRN (11:58)
[2017-11-03] MEDS: METHYLPREDNISOLONE 40 MG INJ IV SCH ×3 (12:00→23:51)
[2017-11-03] MEDS: NA CHLORIDE 0.9% 1,000 ML IV SCH ×2 (12:00→19:02)
[2017-11-03] MEDS ORDERED: MAGNESIUM SULFATE 1 gm IVPB 2 GM/200 ML BAG IV ONE (12:32)
[2017-11-03 12:51] LABS: Blood Morphology Comment NOT SEEN (NOT SEEN); Platelet Estimate ADEQ; Urine White Blood Cell Casts OK
[2017-11-03] MEDS: ALBUTEROL 2.5 MG/3 ML NEB SOL NEB SCH ×2 (14:00→20:07)
--- NOTE | 2017-11-03 14:35 | EKG ---
Test Date: 2017-11-03 Test Time: 11:05:07 Coal Screener: GREGORY MEASUREMENT RESULTS: Intervals: Rate: 122 CT: 124 QRSD: 82 QT: 318 QTc: 453 Vernalis: P: 65 CT: 124 QRS: 20 T: 37 INTERPRETIVE STATEMENTS: Sinus tachycardia Right atrial enlargement Possible Inferior infarct, age undetermined Cannot rule out Anterior infarct, age undetermined Abnormal ECG Compared to ECG 09/20/2017 05:21:31 Myocardial infarct finding now present Electronically Signed On 11-03-17 14:33:46 CDT by Juan Ramon Us
[2017-11-03 16:08] LABS: Urine Blood NEGATIVE (NEG); Urine Glucose NEGATIVE (NEG); Urine Protein NEGATIVE (NEG)
[2017-11-03 16:38] VITALS: BMI 31.4
[2017-11-03] MEDS: ENOXAPARIN 40 MG/0.4 ML SQ SCH (19:02)
--- NOTE | 2017-11-04 01:03 | HP ---
Date of Admission: 11/03/2017 Primary Care Physician: Sean Aguirre M.D. Consultants: Dr. Campbell, Pulmonology. Code Status: Full. Chief Complaint: Shortness of breath, cough. History Of Present Illness: The patient is a 57-year-old female with past medical history of hyperte nsion, hyperlipidemia, hypothyroidism, who was in her usual state of health until day of admission. When the patient started having some difficulty breathing, was concerned that her asthma was acting u p at some wheezing, cough, sputum production, along with fever of 100.4. The patient also had some e pisode of nausea and vomiting. She denies any ill contacts. However, did have a sore throat . The patient was recently in her primary care physician's office day prior to admission, where she was given a shot and was prescribed antibiotics and steroids. The patient's condition did not improv e. Therefore, came in to the ER for further evaluation. In the ER, her workup revealed WBC count of 4.2, did have some neutrophilia. Her sodium was 130. Procalcitonin was negative. She was not sept ic. Her chest x-ray showed no acute intrathoracic process suspected. The patient was then started o n antibiotics and referred for admission. The patient was hypoxic and was placed on oxygen. When se en in the ER, the patient was awake, alert, oriented x3, in some mild distress. Past Medical History: Hypertension, hyperlipidemia, hypothyroidism, intermittent asthma. Past Surgical History: None. Allergies: TO CEPHALEXIN CAUSES ITCHING, HIVES, RASH. Medications: Reviewed. Family History: Noncontributory. The patient denies any history of premature coronary artery diseas e. Social History: The patient used to smoke for about 9 months in her 40s. No other exposure to smoke . No alcohol use or illicit drug use. Review of Systems: Ten point system reviewed, negative except as per HPI. Physical Examination: Vital Signs: Blood pressure 126/84, pulse 116, respirations 24, temperature 98.5, pulse ox 92% on ro om air. General: Awake, alert, oriented x3, in some mild distress, ill-appearing female. HEENT: Normocephalic, atraumatic. PERRLA. EOMI. Moist mucous membranes. Oropharynx is clear. Po or dentition. Conjunctiva anicteric. Neck: Supple. No JVD. Trachea midline. CV: S1, S2. Sinus tachycardia. No murmurs. Peripheral pulses present bilaterally. Respiratory: Diminished breath sounds. Some rhonchi heard and along with some wheezing. No crackle s. No stridor. No use of accessory muscles. Gastrointestinal: Abdomen is soft, nontender, nondistended. Positive bowel sounds. No guarding or rigidity. No palpable masses. Extremities: No clubbing, cyanosis, or edema. No calf tenderness. Neuro: Cranial nerves 2-12 intact grossly. No focal neurological deficits. Strength is 5/5 bilater al upper and lower extremities. Sensation intact to light touch. Skin: No rashes normal skin turgor. Psych: Mood is okay. Affect is full. Insight and judgment are good. Laboratory Data: Sodium 130, potassium 4.8, chloride 102, CO2 21, BUN 14, creatinine 0.89, glucose 1 39, calcium 9.4, magnesium 1.7, AST 43, ALT 59. Troponin less than 0.03. BNP less than 10. Pro eduardo less than 0.05. INR 1.08. WBC 4.2, H and H 13.3 and 39.6, platelets 94, neutrophils 89%. Assessment: A 57-year-old female with: 1.Acute respiratory distress with hypoxia. 2.Asthma intermittent acute exacerbation. 3.Essential hypertension. Resume home medications as appropriate. 4.Hyperlipidemia. 5.We will reconcile home medications. 6.Hypothyroidism. We will resume Synthroid. 7.Gastrointestinal and deep venous thrombosis prophylaxis with PPI and Lovenox. Plan: [facility]. We will touch base with Dr. Campbell with Pul monology. We will obtain blood cultures and sputum culture. SA/MODL Voice ID: [id number]
[2017-11-04] MEDS: ALBUTEROL 2.5 MG/3 ML NEB SOL NEB SCH ×4 (01:55→20:38)
[2017-11-04] MEDS: NA CHLORIDE 0.9% 1,000 ML IV SCH ×2 (02:06→08:00)
[2017-11-04] MEDS: METHYLPREDNISOLONE 40 MG INJ IV SCH ×3 (05:40→18:32)
[2017-11-04 06:30] LABS: Absolute Lymphocytes (CBC) 0.4 K/uL (0.7-4.9); Absolute Monocytes 0.2 K/uL (0.1-1.3); Basophils % 0.1 % (0-1.3); Eosinophils % 0.2 % (0-4.4); Hematocrit 37.7 % (36.0-45.0); Lymphocytes % 10.1 % (15.3-44.8); MCH 30.6 pg (27.0-35.0); MCV 92.2 fL (80-100); MPV 8.2 fL (7.6-11.3); Monocytes % 5.8 % (3.3-12.3); RBC Red Blood Cell Count 4.09 M/uL (3.86-4.86)
[2017-11-04 06:37] LABS: BUN Blood Urea Nitrogen 12 mg/dL (6-20); Bicarbonate 21 mEq/L (21-31); Glucose Level 157 mg/dL (65-120); Magnesium 2.1 mg/dL (1.8-2.5); Potassium 5.1 mEq/L (3.6-5.0); Sodium Level 136 mEq/L (135-145)
[2017-11-04] MEDS ORDERED: PROMETHAZINE-DM 5 ML OSYR PO PRN (07:41)
[2017-11-04] MEDS ORDERED: GUAIFENESIN 600 MG SA TAB PO PRN (07:41)
--- NOTE | 2017-11-04 08:29 | P.CNS ---
Date of Consult: 11/04/17 Reason for Consult: Shortness of breath Chief Complaint: Shortness of breath coughing wheezing History of Present Illness: Patient is 57 years of age with a history of asthma she is Symbicort and pro air at home has been sick since last complains in a progressive shortness of breath, wheezing coughing productive cough and appeared in the hospital she is compliant with her medications there is slight fever they have been exposed to some viral infection Allergies cephalexin [From Keflex] Allergy (Verified 09/20/17 07:10) Itching/Hives/Rash Home Medications: Budesonide/Formoterol Fumarate [Symbicort 160-4.5 Mcg Inhaler] 2 puff IH BID Levothyroxine [Synthroid*] 50 mcg PO [id number] 09/20/17 Lisinopril 10 mg PO DAILY 09/20/17 Simvastatin 1 tab PO BEDTIME 09/20/17 Guaifenesin [Mucinex] 600 mg PO BID PRN #30 tab.er.12h 09/21/17 Albuterol Sulfate [Proair Hfa] 2 puff IH QIDP PRN 11/03/17 D-Methorphan Hb/Prometh HCl [Promethazine-Dm Syrup] 1 tsp PO QIDP PRN 11/03/17 Levofloxacin [Levaquin*] 750 mg PO DAILY 11/03/17 Methylprednisolone 8 mg PO QID 11/03/17 - Past Medical/Surgical History Diabetic: No -: Hypertension -: Asthma -: MRSA in abd wound 2015/2016/2017 -: hypothyroidism -: hyperlipidemia - Family History Father Medical History: Cancer Mother Medical History: Heart disease - Social History Alcohol use: Yes CD- Drugs: No Caffeine use: Yes Place of Residence: Home Review of Systems 10-point ROS is otherwise unremarkable Physical Examination Temp Pulse Resp BP Pulse Ox 97.6 F 83 16 117/66 94 11/04/17 07:58 11/04/17 07:58 11/04/17 07:58 11/04/17 07:58 11/04/17 07:58 General: Alert, Oriented x3 Neck: Supple Respiratory: Expiratory wheezes Cardiovascular: No edema, Regular rate/rhythm, Normal S1 S2 Laboratory Data (last 24 hrs) 11/03/17 10:30: PT 12.8 H, INR 1.08, APTT 24.9 11/03/17 10:30: WBC 4.2 L, Hgb 13.3, Hct 39.6, Plt Count 194 11/03/17 10:30: B-Natriuretic Peptide < 10 11/03/17 10:30: Sodium 130 L, Potassium 4.8, BUN 14, Creatinine 0.89, Glucose 139 H, Magnesium 1.7 L, Total Bilirubin 0.3, AST 43 H, ALT 59, Alkaline Phosphatase 71 - Problems (1) Asthma exacerbation Current Visit: Yes Status: Acute Plan: Patient is 57 years of age admitted with asthma exacerbation patient can be changed to p.o. prednisone continue with bronchodilators loom changer to macrolide p.o. due to anti inflammatory fact sputum cultures chest x-ray is negative white count normal Dc IV levofloxacin daily room air pulse ox possible discharge tomorrow on low-dose prednisone 10 twice a day for 10 days continue with Symbicort and pro air also Zithromax for 3-4 days
[2017-11-04] MEDS ORDERED: HOME MED 1 EA UNK (Budesonide/Formoterol Fumarate [Symbicort 160-4.5 Mcg Inhaler] 2 PUFF) IH SCH (09:00)
[2017-11-04] MEDS ORDERED: Levofloxacin 750mg IV 750 MG/150 ML BAG IV SCH (09:00)
[2017-11-04] MEDS: ARFORMOTEROL TARTRATE 15 MCG/2 ML VIAL.NEB NEB SCH ×2 (09:16→20:38)
[2017-11-04] MEDS: IPRATROPIUM BROM 0.5MG/2.5ML NEB SCH ×3 (09:16→20:38)
[2017-11-04] MEDS: LISINOPRIL 10 MG TAB PO SCH (09:22)
[2017-11-04] MEDS: AZITHROMYCIN 250 MG TAB PO SCH (09:31)
[2017-11-04] MEDS: ENOXAPARIN 40 MG/0.4 ML SQ SCH (17:20)
[2017-11-04] MEDS ORDERED: ATORVASTATIN 40 MG TAB PO SCH (21:00)
--- NOTE | 2017-11-04 23:21 | PN ---
Date of Progress Note: 11/04/2017 Subjective: The patient is seen and examined, chart reviewed, and case discussed with RN. The patie nt states her breathing is better. Case is discussed with Dr. Campbell. The patient still has some wheezing. States that breathing treatments are helping her. Review of Systems: Negative except as above. Medications: Reviewed. Physical Examination: Vital Signs: Temperature 97.6, heart rate 83, blood pressure 117/66, respirations 16, O2 saturation 93% on 2 L via nasal cannula. General: Awake, alert, oriented x3. Some mild distress due to wheezing. CV: S1, S2. Regular rate and rhythm. Peripheral pulses present. Respiratory: Diminished breath sounds. Some wheezing is heard throughout. Gastrointestinal: Abdomen is soft, nontender, and nondistended. Positive bowel sounds. Extremities: No clubbing, cyanosis, or edema. Neurologic: Nonfocal. Laboratory Data: Sodium 136, potassium 5.1, chloride 109, CO2 of 21, BUN 12, creatinine 0.66, glucos e 157, calcium 8.8, magnesium 2.1. WBC 3.5, H and H 12.5 and 37.7, platelets 160. Blood cultures; n o growth to date. Influenza screen negative. Sputum culture is pending. Assessment And Plan: A 57-year-old female with; 1.Acute asthma exacerbation. We will wean steroids. We will continue albuterol and Atrovent breath ing treatment. Chest x-ray is negative. Discontinue IV antibiotics. Switch to p.o. 2.Obesity. BMI of 31.4. 3.Acute respiratory distress with hypoxia, improved, currently on supplemental oxygen. Wean as tole rated. 4.Essential hypertension, stable. 5.Hyperlipidemia, mixed. 6.Hypothyroidism. Continue Synthroid. Plan: Likely discharge in a.m. if continues to improve. SA/MODL Voice ID: [id number] Report ID: [id number]
[2017-11-05] MEDS: METHYLPREDNISOLONE 40 MG INJ IV SCH ×3 (00:01→12:33)
[2017-11-05] MEDS: ALBUTEROL 2.5 MG/3 ML NEB SOL NEB SCH ×3 (01:26→13:25)
[2017-11-05] MEDS: IPRATROPIUM BROM 0.5MG/2.5ML NEB SCH ×3 (01:26→13:25)
[2017-11-05 05:17] VITALS: BP 120/61
[2017-11-05] MEDS ORDERED: LEVOTHYROXINE SOD 0.05 MG TABLET PO SCH (06:00)
[2017-11-05 06:08] LABS: Absolute Lymphocytes (CBC) 0.5 K/uL (0.7-4.9); Absolute Monocytes 0.4 K/uL (0.1-1.3); Absolute Neutrophil 6.2 K/uL (1.8-8.0); Basophils % 0.1 % (0-1.3); Hematocrit 34.6 % (36.0-45.0); Lymphocytes % 7.5 % (15.3-44.8); MCH 30.8 pg (27.0-35.0); MCV 90.9 fL (80-100); MPV 8.1 fL (7.6-11.3); Monocytes % 5.8 % (3.3-12.3); RBC Red Blood Cell Count 3.81 M/uL (3.86-4.86)
[2017-11-05 06:19] LABS: BUN Blood Urea Nitrogen 15 mg/dL (6-20); Bicarbonate 25 mEq/L (21-31); Glucose Level 163 mg/dL (65-120); Potassium 4.6 mEq/L (3.6-5.0); Sodium Level 139 mEq/L (135-145)
[2017-11-05] MEDS: ARFORMOTEROL TARTRATE 15 MCG/2 ML VIAL.NEB NEB SCH (07:20)
[2017-11-05 08:24] VITALS: O2SAT 95
[2017-11-05] MEDS: LISINOPRIL 10 MG TAB PO SCH (08:24)
[2017-11-05] MEDS: AZITHROMYCIN 250 MG TAB PO SCH (08:25)
[2017-11-05 10:00] VITALS: TEMP 97.5
--- NOTE | 2017-11-06 11:41 | DS ---
Date of Discharge: 11/05/2017 Insurance Examiner: Dr. Campbell with Pulmonology. Admitting Diagnoses: 1.Acute asthma exacerbation. 2.Obesity, BMI 31.4. 3.Acute respiratory distress with hypoxia. 4.Essential hypertension. 5.Hyperlipidemia, mixed. 6.Hypothyroidism, on Synthroid. Discharge Diagnoses: 1.Acute asthma exacerbation, improved. 2.Acute respiratory distress with hypoxia, resolved. The patient weaned off oxygen. 3.Essential hypertension, stable. 4.Hyperlipidemia, mixed. Continue medications. 5.Hypothyroidism, on Synthroid. 6.Obesity, BMI 31.4. Hospital Course: The patient is a 57-year-old female, who comes in with acute asthma exacerbation. The patient was started on nebulizer treatments and IV steroids. The patient was seen by Pulmonology , Dr. Campbell. Her chest x-ray did not show any acute pneumonia; however, she had some clinical sym ptoms including fever, chills, and cough along with sputum production. She was started on empiric an tibiotics, switched to p.o. by Pulmonology. The patient did well over the course of the hospital sta y. She was able to be weaned off oxygen. Her procalcitonin was negative. She did not qualify for s epsis. She had sudden hyperkalemia, which was corrected. White count remained stable. The blood cu ltures showed no growth. Influenza screen was negative. Sputum culture showed normal quantity of re spiratory dennys. The patient was doing well. She was then [facility] The patient was then discharged home in a stable condition. Activity: As tolerated. Medications: As per medication reconciliation list. Complete course of azithromycin and complete Me drol Dosepak provided by PCP earlier. Return to ER for worsening condition. Followup: Follow up with primary care physician 2-3 days. Follow up with industrial maintenance electrician, Dr. Kari tapia in 2 weeks. Diet: Heart healthy. Activity: No strenuous activity. Total time spent discharging the patient was 33 minutes. Physical Examination: General: Awake, alert, oriented, no acute distress. CV: S1, S2. No murmurs. Respiratory: Moving air well bilaterally. Some mild wheezing. No stridor. No use of accessory mus cles. Gastrointestinal: Abdomen is soft, nontender, and nondistended. Positive bowel sounds. Extremities: No clubbing, cyanosis, edema. Neurologic: Nonfocal. SA/MODL Voice ID: [id number] Report ID: [id number]
== END 2017-11-05 15:09 | disposition home or self-care (01) | DRG 204 ==
LOC: ER 10:08 → ERHOLD 11:14 → 4TH 15:51
PROVIDERS: ADMIT Family Medicine; ATTEND Family Medicine
DX: R06.03 Acute respiratory distress (principal); J45.901 Unspecified asthma with (acute) exacerbation; R09.02 Hypoxemia; E78.2 Mixed hyperlipidemia; E03.9 Hypothyroidism, unspecified; E66.9 Obesity, unspecified; Z68.31 Body mass index [BMI] 31.0-31.9, adult; E87.5 Hyperkalemia; I10 Essential (primary) hypertension
CPT/HCPCS: 36415; 71045; 80048; 80076; 81003; 81025; 82550; 82553; 83735; 83880; 84145; 84484; 85025; 85610; 85730; 87040; 87070; 87205; 87804; 93005; 94640; 96365; 96366; 96375; 99285; J1650; J2920; J2930; J3475; J7030; J7605